=== PATIENT | female | born 1990 | race Two or more races ===

== ENCOUNTER 2024-02-12 17:25 | Emergency (ER) | payer MEDICAID, OTHER ==
[~2024-02-12] VITALS: Ht 162.6 cm; Wt 127.0 kg
[2024-02-12 18:36] VITALS: BP 106/61; PULSE 85; RESP 18; TEMP 98.3; O2SAT 96
[2024-02-12] MEDS ORDERED: IBUP-1456 PO (19:12)
--- NOTE | 2024-02-12 19:12 | ED.PDOC ---
Musculoskeletal HPI Comments 33 year old female presents to ER with complaints of right leg pain x 1 day. Patient with PMH of chronic lumbar back pain and bursitis of right hip states she started experiencing pain centralized to right buttock at 9am this morning when she went to "bend over" to use the restroom. She rates her current pain a "burning" 5/10 to right buttock with radiation towards right lower lumbar spine and right hip. Stage she is prescribed tramadol and tizanidine but did not take any prior to arrival to ER. Patient presents to ER ambulatory with use of cane, in mild distress and states her pain is worse with movement and better with rest. Denies fever, nausea/vomiting, numbness/tingling, shortness of breath, chest pain, abdominal/pelvic pain, changes in urination/BM or any further symptoms/complaints Chief Complaint: Lower Extremity Time Seen by MD: 18:10 Primary Care Provider: UNKNOWN Reviewed Notes: Nurses Notes, Medications, Allergies Allergies: Coded Allergies: Latex (Verified Allergy, Unknown, 02/12/24) Home Meds Active Scripts Ibuprofen (Ibuprofen) 800 Mg Tab, 1 TAB PO TID PRN, #30 TAB 0 Refills Prov:ALL MONTOYA 02/12/24 Information Source: Patient Mode of Arrival: Ambulatory Past Medical History Past Medical History (Other): Chronic lumbar back pain Fibromyalgia Bursitis right hip Surgical History: Denies all surgeries [employer] History: No Pertinent [employer] History [facility] [birth year]24 Family History Family History: Unknown Social History Smoker: Non-Smoker Alcohol: Occasionally Drugs: Marijuana Lives In: Home Constitutional: denies: chills, diaphoresis, fatigue, fever, malaise, sweats, weakness, others EENTM: denies: blurred vision, double vision, ear bleeding, ear discharge, ear drainage, ear pain, ear ringing, eye pain, eye redness, hearing loss, mouth pain, mouth swelling, nasal discharge, nose bleeding, nose congestion, nose pain, photophobia, tearing, throat pain, throat swelling, voice changes, others Respiratory: denies: cough, hemoptysis, orthopnea, SOB at rest, shortness of breath, SOB with excertion, stridor, wheezing, others Cardiovascular: denies: chest pain, dizzy spells, diaphoresis, Dyspnea on exertion, edema, irregular heart beat, left arm pain, lightheadedness, palpitations, PND, syncope, others Gastrointestinal: denies: abdomen distended, abdominal pain, blood streaked bowels, constipated, diarrhea, dysphagia, difficulty swallowing, hematemesis, melena, nausea, poor appetite, poor fluid intake, rectal bleeding, rectal pain, vomiting, others Genitourinary: denies: abnormal vagina bleeding, burning, dyspareunia, dysuria, flank pain, frequency, hematuria, incontinence, pain, , vagina discharge, urgency, others Neurological: denies: dizziness, fainting, headache, left sided numbness, left sided weakness, numbness, paresthesia, pre-existing deficit, right sided numbness, right sided weakness, seizure, speech problems, tingling, tremors, weakness, others Musculoskeletal: reports: others (As stated in HPI) Integumetry: denies: bruises, change in color, change in hair/nails, dryness, laceration, lesions, lumps, rash, wounds, others Allergic/Immunocompromised: denies: Difficulty Healing, Frequent Infections, Hives, Itching, others Hematologic/Lymphatic: denies: anemia, blood clots, easy bleeding, easy bruising, swollen glands, others Endocrine: denies: excessive hunger, excessive sweating, excessive thirst, excessive urination, flushing, intolerance to cold, intolerance to heat, unexplained weight gain, unexplained weight loss, others Psychiatric: denies: anxiety, bipolar disorder, depression, hopeless, panic disorder, schizophrenia, sleepless, suicidal, others Physical Exam General Appearance: Mild Distress (due to pain), Obese HEENT: PERRL/EOMI Neck: Full Range of Motion, Non-Tender, Normal Respiratory: Chest Non-Tender, Lungs Clear, No Accessory Muscle Use, No Respiratory Distress, Normal Breath Sounds Cardiovascular: No Murmur, No Gallop, Regular Rate/Rhythm Breast Exam: Deferred Gastrointestinal: NOT DONE Genitalia: Deferred Pelvic: Deferred Rectal: Deferred Extremities: No calf tenderness, Normal capillary refill, Normal range of motion Musculoskeletal : Extremity Location: Other (TTP centralized to right buttock and right lower lumbar paraspinals. Slight TTP also noted to right hip. Gait slowed with use of cane) Neurologic: Alert, No Motor Deficits, No Sensory Deficits Cerebellar Function: Normal Reflexes: Normal Skin: Dry, Normal Color, Warm Peripheral Pulses: 2+ femoral (R), 2+ femoral (L), 2+ dorsalis pedis (R), 2+ dorsalis pedis (L) Lymphatic: No Adenopathy Was a procedure done? Was a procedure done?: No Sedation Sedation?: No Differential Diagnosis EXT Differential Diagnosis: Fracture, Dislocation, Neurovascular injury X-Ray, Labs, Meds, VS Vital Signs Date Time Temp Pulse Resp B/P (MAP) Pulse Ox O2 Delivery O2 Flow Rate FiO2 02/12/24 18:36 85 18 96 Room Air 02/12/24 18:36 98.3 85 18 106/61 (76) 96 98.3 02/12/24 17:40 97.8 89 18 111/71 (84) 96 Toradol 60 mg IM ordered Solu-Medrol 125 mg IM ordered Patient neurovascularly intact and reported improvement in symptoms prior to discharge Advised on rest/no strenuous activity Advised to follow up with PCP in 1-2 days Patient verbalized understanding and agreeable with current plan of care Advised to return to ER immediately if symptoms worsen Time of 1ST Reevaluation: 18:54 Reevaluation 1ST: N/A Patient Education/Counseling: Diagnosis, Treatment, Prognosis, Need For Follow Up Family Education/Counseling: Diagnosis, Treatment, Prognosis, Need For Follow Up Departure 1 Departure Time of Disposition: 19:10 Impression: Primary Impression: Sciatica, right side Disposition: 01 HOME / SELF CARE / HOMELESS Condition: Stable e-Prescriptions Ibuprofen (Ibuprofen) 800 Mg Tab 1 TAB PO TID PRN, #30 TAB 0 Refills Prov: ALL MONTOYA 02/12/24 Discharged With: Friend Critical Care Note Critical Care Time?: No Stability Stability form required: No Heart Score Heart Score: Heart Score Response (Comments) Value History N/A 0 EKG N/A 0 Age N/A 0 Risk Factors N/A 0 Troponin N/A 0 Total 0 ALL MONTOYA Feb 12, 2024 19:12
[2024-02-12] MEDS: methylPREDNISolone SOD SUCC 125 MG/2 ML VL IM ONE (19:14)
[2024-02-12] MEDS: KETOROLAC TROMETH 60MG/2ML VIAL IM ONE (19:15)
== END 2024-02-12 19:30 | disposition home or self-care (01) ==
LOC: ER 17:28
DX: M54.31 Sciatica, right side (principal); F15.90 Other stimulant use, unspecified, uncomplicated; Z91.040 Latex allergy status; Z79.899 Other long term (current) drug therapy
CPT/HCPCS: 96372; 99284; J1885; J2919